=== PATIENT | male | born 1990 | race Caucasian/White ===

== ENCOUNTER 2022-10-09 17:07 | Emergency (ER) | payer MEDICAID ==
[~2022-10-09] VITALS: Ht 172.7 cm; Wt 90.7 kg
[2022-10-09 17:18] VITALS: BP_SYST 141
--- NOTE | 2022-10-09 17:25 | NUR ---
TRIAGE COMPLETE. PT NOTED TO DEMONSTRATE INTERMITTENT AGITATION THROUGHOUT TRIAGE PROCESS. STATING "I DON'T WANT TO TALK ANYMORE...I JUST WANT TO LAY DOWN". PT STATES HE SELF CHECKED INTO TX AT [facility]. STATES HE HAS BEEN USING "CRYSTAL METHAMPHETAMINE". DENIES SUICIDAL OR HOMICIDAL IDEATION. STATES "THEY TOLD ME I HAVE SCHIZOPHRENIA. PT BRIEFLY SEATING IN LOBBY IN VIEW OF QUALITY ASSURANCE TESTER, ED CAMERA, AND REGISTRATION DEST=K. DISCUSSED PLACEMENT WITH CHARGE-BEATRIZ HARTMANN. ROOM 5 CLEARED FOR MEDICAL CLEARANCE EVAL.
--- NOTE | 2022-10-09 18:01 | NUR ---
PATIENT CALLED TO BRING BACK TO BED 5. NO RESPONSE. ORTHOTIC/PROSTHETIC PRACTITIONER STATED THAT HE WAS SEEN WALKING DOWN THE STREET
--- NOTE | 2022-10-10 14:16 | NUR ---
Precast Worker re: homelessness Referral received, however the patient was not seen as the patient left the hospital AMA. Attempted to contact patient on the numbers affilated to him on his face sheet, however there was no answer and I was unable to reach him.
== END 2022-10-09 17:50 | disposition left against medical advice (07) ==
LOC: SED 17:07
DX: Z04.6 Encounter for general psychiatric examination, requested by authority (principal); Z53.21 Procedure and treatment not carried out due to patient leaving prior to being seen by health care provider
CPT/HCPCS: 99281

== ENCOUNTER 2022-10-10 22:26 | Emergency (ER) | payer MEDICAID ==
[~2022-10-10] VITALS: Ht 172.7 cm; Wt 90.7 kg
[2022-10-10 22:33] VITALS: BP_SYST 110
[2022-10-10 23:16] LABS: BASOPHILS # (AUTO) 0.1 K/uL (0.0-0.2); BASOPHILS % (AUTO) 0.7 % (0.0-2.0); EOSINOPHILS # (AUTO) 0.2 K/uL (0.0-0.4); EOSINOPHILS % (AUTO) 1.9 % (0.0-4.0); HEMATOCRIT 42.7 % (36-54); HEMOGLOBIN 14.8 g/dL (14.0-18.0); LYMPHOCYTES # (AUTO) 3.9 K/uL (1.0-5.5); LYMPHOCYTES % (AUTO) 43.4 % (20.5-51.5); MEAN CORPUSCULAR HEMOGLOBIN 33 pg (27-31); MEAN CORPUSCULAR HGB CONC 35 % (32-36); MEAN CORPUSCULAR VOLUME 95 fL (79.0-98.0); MONOCYTES # (AUTO) 0.8 K/uL (0.0-1.0); MONOCYTES % (AUTO) 8.9 % (1.7-9.3); NEUTROPHILS % (AUTO) 45.1 % (40.0-70.0); PLATELET COUNT (AUTO) 218 K/uL (130-430); RED BLOOD CELL COUNT(AUTO) 4.48 MIL/uL (4.2-6.2); RED CELL DISTRIBUTION WIDTH 12.9 % (9.0-15.0)
[2022-10-10 23:25] LABS: CALCIUM 7.7 mg/dL (8.4-11.0); CREATININE 0.98 mg/dL (0.55-1.30)
[2022-10-10 23:30] LABS: ALBUMIN 3.8 g/dL (3.4-4.8); TOTAL BILIRUBIN 0.2 mg/dL (0.0-1.0)
[2022-10-11 00:17] LABS: CKMB RELATIVE INDEX 0.8 (0.0-2.9); CREATINE KINASE MB 4.6 ng/mL (0-3.6)
[2022-10-11 01:56] LABS: BARBITURATE, URINE NEGATIVE (NEG <=200); BENZODIAZEPINE, URINE NEGATIVE (NEG <=150); CANNABINOID, URINE NEGATIVE (NEG <=50); COCAINE, URINE NEGATIVE (NEG <=150); METHAMPHETAMINES SCREEN,URINE POSITIVE (NEG <=500); OPIATE, URINE NEGATIVE (NEG <=100); PHENCYCLIDINE SCREEN,URINE NEGATIVE (NEG <=25); URINE AMPHETAMINE POSITIVE (NEG <=500); URINE METHADONE NEGATIVE (NEG <=200); URINE OXYCODONE SCREEN NEGATIVE (NEG <=100); URINE PROPOXYPHENE SCREEN NEGATIVE (NEG <=300)
[2022-10-11 01:57] LABS: UR TRICYCLIC ANTIDEPRESSANTS NEGATIVE (NEG <=300)
[2022-10-11 02:00] VITALS: BP_SYST 110
== END 2022-10-11 02:00 | disposition home or self-care (01) ==
LOC: SED 22:26
DX: F10.129 Alcohol abuse with intoxication, unspecified (principal); Z79.899 Other long term (current) drug therapy; Y90.6 Blood alcohol level of 120-199 mg/100 ml
CPT/HCPCS: 99283; 80307; 80053; 82550; 82553; 85025; 36415; G0482